=== PATIENT | female | born 1975 ===

== ENCOUNTER 2018-06-30 08:59 | Emergency (ER) | payer OTHER ==
[2018-06-30 09:30] VITALS: RESP 18; TEMP 99; O2SAT 98
[2018-06-30 09:33] VITALS: BMI 35.0
--- NOTE | 2018-06-30 10:06 | ED PDOC ---
Arrival/HPI - General Chief Complaint: Abnormal Skin Integrity Time Seen by Provider: 06/30/18 10:02 Historian: Patient - History of Present Illness Narrative History of Present Illness (Text): 06/30/18 10:12 42-year-old female presents today with a one-month history of intermittent rash. Patient states she's been having pruritus and rash on and off for the past month. Patient states she's been taking Benadryl every 6 hours for the itch. She denies chest pain or shortness of breath. She denies new soaps lotions detergents or perfumes. Patient denies new medications. Patient states that she sleeps with her son in the same bed and her son has no symptoms. Patient denies fevers or chills. Patient states that she will have an area of red patches that develop on the left samuel the arms the abdomen and back. Patient states when she takes the Benadryl the rash goes away the itching resolves but then after 4-6 hours the rash returns. Time/Duration: Other (1 month) Past Medical History - Provider Review Nursing Documentation Reviewed: Yes - Travel History Have you recently traveled outside [place] w/in the past 3 mons?: No - Past History Past History: No Previous - Infectious Disease Hx of Infectious Diseases: None - Tetanus Immunization Tetanus Immunization: Unknown - Cardiac Hx Cardiac Disorders: No - Pulmonary Hx Respiratory Disorders: No - Neurological Hx Neurological Disorder: No - HEENT Hx HEENT Disorder: No - Renal Hx Kidney Stones: Yes - Endocrine/Metabolic Hx Endocrine Disorders: No - Hematological/Oncological Hx Blood Disorders: No - Integumentary Hx Dermatological Disorder: No - Musculoskeletal/Rheumatological Hx Musculoskeletal Disorders: No Hx Falls: No - Gastrointestinal Hx Gastrointestinal Disorders: No - Genitourinary/Gynecological Hx Genitourinary Disorders: No - Psychiatric Hx Depression: No Hx Substance Use: No - Surgical History Other/Comment: sx for kidney stones - Anesthesia Hx Anesthesia: Yes Hx Anesthesia Reactions: No Hx Malignant Hyperthermia: No - Suicidal Assessment Feels Threatened In Home Enviroment: No Family/Social History - Physician Review Nursing Documentation Reviewed: Yes Family/Social History: Unknown Family HX Smoking Status: Never Smoked Hx Alcohol Use: No Hx Substance Use: No Allergies/Home Meds Allergies/Adverse Reactions: Allergies No Known Allergies Allergy (Verified 06/03/18 10:12) Home Medications: Home Meds Medication Instructions Recorded Confirmed Home Med 1 tab PO DAILY 06/30/18 06/30/18 Review of Systems - Review of Systems Constitutional: absent: Fatigue, Fevers ENT: absent: Sore Throat, Sinus Congestion Respiratory: absent: SOB, Cough Cardiovascular: absent: Chest Pain, Palpitations Gastrointestinal: absent: Abdominal Pain, Nausea, Vomiting Musculoskeletal: absent: Arthralgias, Back Pain Skin: Rash, Pruritis Neurological: absent: Headache, Dizziness Psychiatric: absent: Anxiety, Depression Physical Exam Vital Signs Reviewed: Yes Vital Signs Temp Pulse Resp BP Pulse Ox 06/30/18 09:28 99.0 F 89 18 139/68 98 Temperature: Afebrile Blood Pressure: Normal Pulse: Regular Respiratory Rate: Normal Appearance: Positive for: Well-Appearing, Non-Toxic, Comfortable Pain Distress: None Mental Status: Positive for: Alert and Oriented X 3 - Systems Exam Head: Present: Atraumatic Mouth: Present: Moist Mucous Membranes Neck: Present: Normal Range of Motion Respiratory/Chest: Present: Clear to Auscultation, Good Air Exchange. No: Respiratory Distress, Accessory Muscle Use Cardiovascular: Present: Regular Rate and Rhythm, Normal S1, S2. No: Murmurs Back: No: Midline Tenderness, Paraspinal Tenderness Upper Extremity: Present: Normal ROM Lower Extremity: Present: Normal ROM Neurological: Present: GCS=15, Speech Normal Skin: Present: Warm, Dry, Rashes (few sporatic areas of erythematous papules, non tender, located on the left samuel, abdomen and low back and left forearm ), Normal Color Psychiatric: Present: Alert, Oriented x 3 Medical Decision Making ED Course and Treatment: 06/30/18 10:15 Patient is nontoxic well-appearing in no distress with stable vital signs no angioedema. Lungs are clear to auscultation bilaterally there is no wheezing noted. The airway is patent pt with intermittent rash x 1 month. resolves with benadryl. will have patient continue benadryl and f/u with director of product marketing. I advised taking Benadryl every 6 hours as needed for itch. Advised patient to follow up with primary care physician and director of product marketing within the next 2 days and return if symptoms worsen persist or if new symptoms develop. Patient verbalizes understanding of discharge instructions and need for imm ediate followup. Impression :rash continue Benadryl every 4-6 hours as needed for rash follow up with the primary care physician within the next 2 days. Follow up with the director of product marketing within the next 2 days return immediately if symptoms worsen,persist or if new concerning symptoms develop. Disposition/Present on Arrival - Present on Arrival Any Indicators Present on Arrival: No History of DVT/PE: No History of Uncontrolled Diabetes: No Urinary Catheter: No History of Decub. Ulcer: No History Surgical Site Infection Following: None - Disposition Have Diagnosis and Disposition been Completed?: Yes Diagnosis: Rash Disposition: HOME/ ROUTINE Disposition Time: 10:02 Patient Plan: Discharge Condition: GOOD Discharge Instructions (ExitCare): Skin Rash (DC) Additional Instructions: continue Benadryl every 4-6 hours as needed for rash follow up with the primary care physician within the next 2 days. Follow up with the director of product marketing within the next 2 days return immediately if symptoms worsen,persist or if new concerning symptoms develop. Referrals: Wilfred Dumont MD [Staff Provider] - Follow up with primary Fabi Block MD [Staff Provider] - Follow up with primary Ashanti Alanis MD [Medical Doctor] - Follow up with primary [facility] [Outside] - Follow up with primary Forms: [employer] [facility] ([place]), WORK NOTE
[2018-06-30 10:12] VITALS: BP 128/76; PULSE 82
== END 2018-06-30 10:12 | disposition home or self-care (01) ==
LOC: ED 08:59
DX: R21 Rash and other nonspecific skin eruption (principal)

== ENCOUNTER 2018-08-31 13:41 | Emergency (ER) | payer OTHER ==
[2018-08-31 13:41] VITALS: BMI 35.0
[2018-08-31 14:02] VITALS: TEMP 98.2; O2SAT 98
--- NOTE | 2018-08-31 14:28 | ED PDOC ---
Arrival/HPI - General Chief Complaint: Abnormal Skin Integrity Time Seen by Provider: 08/31/18 13:43 Historian: Patient - History of Present Illness Narrative History of Present Illness (Text): 08/31/18 14:24 A 43 year old female, with no significant past medical history, presents to the emergency department complaining of intermittent pruritic rash for the past 3 months located on bilateral shins and right ankle. Patient reports she was here in the ER before for the same complaint. Last time was given Benadryl and had no relief. Patient also tried Lidocaine ointment, also no relief, and rash has become progressively worse as per patient. States she has seen a room service associate and gone to the [facility], each place she was told the rashes were an allergic reaction. No new foods. No new detergents or recent travel abroad. No recent bug bites. Pt notes she did not take her benadryl today. Patient denies any fever, chills, cough, abdominal pain, nausea, vomiting, diarrhea, chest pain, shortness of breath, urinary symptoms, or any other complaints at this time. No PMD 08/31/18 15:43 Past Medical History - Provider Review Nursing Documentation Reviewed: Yes - Past History Past History: No Previous - Infectious Disease Hx of Infectious Diseases: None - Tetanus Immunization Tetanus Immunization: Unknown - Cardiac Hx Cardiac Disorders: No - Pulmonary Hx Respiratory Disorders: No - Neurological Hx Neurological Disorder: No - HEENT Hx HEENT Disorder: No - Renal Hx Kidney Stones: Yes - Endocrine/Metabolic Hx Endocrine Disorders: No - Hematological/Oncological Hx Blood Disorders: No - Integumentary Hx Dermatological Disorder: No - Musculoskeletal/Rheumatological Hx Musculoskeletal Disorders: No Hx Falls: No - Gastrointestinal Hx Gastrointestinal Disorders: No - Genitourinary/Gynecological Hx Genitourinary Disorders: No - Psychiatric Hx Depression: No Hx Substance Use: No - Surgical History Hx Cholecystectomy: Yes Other/Comment: sx for kidney stones - Anesthesia Hx Anesthesia: Yes Hx Anesthesia Reactions: No Hx Malignant Hyperthermia: No - Suicidal Assessment Feels Threatened In Home Enviroment: No Family/Social History - Physician Review Nursing Documentation Reviewed: Yes Family/Social History: No Known Family HX Smoking Status: Never Smoked Hx Alcohol Use: No Hx Substance Use: No Allergies/Home Meds Allergies/Adverse Reactions: Allergies No Known Allergies Allergy (Verified 08/31/18 14:02) Home Medications: Home Meds Medication Instructions Recorded Confirmed Home Med 1 tab PO DAILY 06/30/18 08/31/18 Review of Systems - Physician Review All systems were reviewed & negative as marked: Yes - Review of Systems Constitutional: absent: Fevers, Night Sweats Eyes: absent: Vision Changes ENT: absent: Hearing Changes Respiratory: absent: SOB, Cough Cardiovascular: absent: Chest Pain Gastrointestinal: absent: Abdominal Pain, Diarrhea, Nausea, Vomiting Genitourinary Female: absent: Dysuria, Frequency, Hematuria, Urine Output Changes Skin: Rash (bilateral shins), Pruritis. absent: Laceration, Abscess, Ulcer Neurological: absent: Headache, Dizziness, Focal Weakness Endocrine: absent: Diaphoresis, Polyuria, Polydipsia Physical Exam Vital Signs Reviewed: Yes Vital Signs Temp Pulse Resp BP Pulse Ox 08/31/18 14:00 98.2 F 78 18 139/77 98 Temperature: Afebrile Blood Pressure: Normal Pulse: Regular Respiratory Rate: Normal Appearance: Positive for: Well-Appearing, Non-Toxic, Comfortable Pain Distress: None Mental Status: Positive for: Alert and Oriented X 3 - Systems Exam Head: Present: Atraumatic, Normocephalic Pupils: Present: PERRL Extroacular Muscles: Present: EOMI Conjunctiva: Present: Normal Mouth: Present: Moist Mucous Membranes Neck: Present: Normal Range of Motion. No: Meningeal Signs Respiratory/Chest: Present: Clear to Auscultation, Good Air Exchange. No: Respiratory Distress, Accessory Muscle Use Cardiovascular: Present: Regular Rate and Rhythm, Normal S1, S2. No: Murmurs Abdomen: No: Tenderness, Distention, Peritoneal Signs Back: Present: Normal Inspection Upper Extremity: Present: Normal Inspection, NORMAL PULSES, Neurovascularly Intact, Capillary Refill < 2s. No: Cyanosis, Edema Lower Extremity: Present: Normal Inspection, NORMAL PULSES, Neurovascularly Intact, Capillary Refill < 2 s. No: Edema, CALF TENDERNESS, Swelling Neurological: Present: GCS=15, CN II-XII Intact, Speech Normal Skin: Present: Rashes (bilateral shins urticarial rash, mildly erythematous, no crepitus. Non swollen. Atraumatic.) Psychiatric: Present: Alert, Oriented x 3, Normal Insight, Normal Concentration Medical Decision Making ED Course and Treatment: 08/31/18 14:25 Impression: 43 year old female with intermittent pruritic rash. Seen by derm and clinic for same rash. Urticarial appearing. Non cellulitis appearing. No streaking of rash upwards. Good n/v status distal. Likely urticarial rash, chronic. No recent or new medications. No bullae Plan: -- Benadryl -- Reassess and disposition Prior Visits: Notes and results from previous visits were reviewed. Patient was last seen in the emergency department on 06/30/2018 for one-month history of intermittent rash. Patient was discharged home. Progress Notes: 08/31/18 15:48 Urticarial rash improved, less itchy. No open wounds noted. Given recc on outpatient rx with benadryl cream: pt agreeable to plan. remains N/V intact distally. - Medication Orders Current Medication Orders: Discontinued Medications Diphenhydramine HCl (Benadryl) 25 mg PO ONCE ONE Stop: 08/31/18 14:17 - Scribe Statement The provider has reviewed the documentation as recorded by the Narendra Tinoco Provider Scribe Attestation: All medical record entries made by the Mayteibmichelle were at my direction and personally dictated by me. I have reviewed the chart and agree that the record accurately reflects my personal performance of the history, physical exam, medical decision making, and the department course for this patient. I have also personally directed, reviewed, and agree with the discharge instructions and disposition. Disposition/Present on Arrival - Present on Arrival Any Indicators Present on Arrival: No History of DVT/PE: No History of Uncontrolled Diabetes: No Urinary Catheter: No History of Decub. Ulcer: No History Surgical Site Infection Following: None - Disposition Have Diagnosis and Disposition been Completed?: Yes Diagnosis: Urticaria Disposition: HOME/ ROUTINE Disposition Time: 15:46 Condition: GOOD Discharge Instructions (ExitCare): Hives, Hives (DC) Additional Instructions: Continue the BENADRYL. TRY BENADRYL CREAM (ITS OVER THE COUNTER). DO NOT TAKE BENADRYL ORAL AND THE BENADRYL CREAM AT SAME TIME. TY CAIN, thank you for letting us take care of you today. Your provider was Percy Kunz and you were treated for RASH/ ITCHY BOTH LEGS. The emergency medical care you received today was directed at your acute symptoms. If you were prescribed any medication, please fill it and take as directed. It may take several days for your symptoms to resolve. Return to the Emergency Department if your symptoms worsen, do not improve, or if you have any other problems. Please contact your doctor or call one of the physicians/clinics you have been referred to that are listed on the Patient Visit Information form that is included in your discharge packet. Bring any paperwork you were given at discharge with you along with any medications you are taking to your follow up visit. Our treatment cannot replace ongoing medical care by a primary care provider outside of the emergency department. Thank you for allowing the [facility] team to be part of your care today. If you had an X-Ray or CT scan: A Radiologist will review the ED reading if any change in treatment is needed we will contact you. If you had a blood, urine, or wound culture: It will take several days for the results, if any change in treatment is needed we will contact you. If you had an STI test: It will take 48 hours for the results. Please call after 1 week if you have not heard back. Referrals: [facility] [Outside] - Follow up with primary [facility] [Outside] - Follow up with primary [facility] [Outside] - Follow up with primary Forms: [employer] [facility] [place] ([place])
[2018-08-31 16:15] VITALS: BP 136/74; PULSE 73; RESP 16
== END 2018-08-31 16:14 | disposition home or self-care (01) ==
LOC: ED 13:41
DX: L50.9 Urticaria, unspecified (principal)

== ENCOUNTER 2018-11-18 09:47 | Outpatient (CLI) | payer OTHER | END 2018-11-18 09:48 | disposition home or self-care (01) | LOC: RAD 09:47 | DX: Z12.31 Encounter for screening mammogram for malignant neoplasm of breast (principal) ==